=== PATIENT | female | born 1960 | race Caucasian/White ===

== ENCOUNTER 2020-06-29 20:55 | Inpatient (IN) | payer BC ==
[~2020-06-29] VITALS: Ht 162.6 cm; Wt 63.6 kg
[2020-06-29] MEDS ORDERED: etomidate 2mg/ml inj. IV ONE (21:35)
[2020-06-29] MEDS ORDERED: magnesium 2GM in 50ml NS 50 ML IV ONE (21:50)
[2020-06-29] MEDS ORDERED: diltiazem 30mg tablet PO ONE (21:50)
[2020-06-29] MEDS ORDERED: magnesium Cl slow-release 64mg tablet PO PRN (22:05)
[2020-06-29] MEDS ORDERED: HYDROcodone/acetaminophen 5mg/325mg tablet PO PRN (22:05)
[2020-06-29] MEDS ORDERED: magnesium 2GM in 50ml NS 50 ML IV PRN (22:05)
[2020-06-29] MEDS ORDERED: ondansetron/PF 4mg/2ml inj IV PRN (22:05)
[2020-06-29] MEDS ORDERED: magnesium 4gm in 100ml NS 100 ML IV PRN (22:05)
[2020-06-29] MEDS ORDERED: mag hydrox/Alum hydrox/simeth 30ml oral suspension PO PRN (22:05)
[2020-06-29] MEDS ORDERED: magnesium hydroxide 30ml (MOM) UD suspension PO PRN (22:05)
[2020-06-29] MEDS ORDERED: potassium Cl 20 mEq SR tablet PO PRN ×2 (22:05)
[2020-06-29] MEDS ORDERED: acetaminophen 325mg tablet PO PRN (22:05)
[2020-06-29] MEDS ORDERED: potassium CL 10mEq/100ml bag 100 ML IV PRN ×2 (22:05)
[2020-06-29 22:26] LABS: BASOPHILS # (AUTO) 0.1 X10'3 (0-0.2); BASOPHILS % (AUTO) 0.9 % (0-1); EOSINOPHILS # (AUTO) 0.1 X10'3 (0-0.9); EOSINOPHILS % (AUTO) 1.4 % (0-6); HEMATOCRIT 44.5 % (35.0-45.0); HEMOGLOBIN 14.5 g/dl (12.0-16.0); LYMPHOCYTES % (AUTO) 28.8 % (21-51); MEAN CORPUSCULAR HEMOGLOBIN 28.8 PG (27.0-31.0); MEAN CORPUSCULAR HGB CONC 32.6 g/dL (33.0-36.5); MEAN CORPUSCULAR VOLUME 88.3 FL (78-98); MEAN PLATELET VOLUME 7.6 FL (7.4-10.4); MONOCYTES # (AUTO) 0.4 X10'3 (0-0.9); MONOCYTES % (AUTO) 6.1 % (2-12); NEUTROPHILS # (AUTO) 4.4 X10'3 (1.8-7.7); NEUTROPHILS % (AUTO) 62.8 % (42-75); PLATELET COUNT 267 X10'3 (140-440); RED BLOOD COUNT 5.05 X10'6 (4.20-5.60); RED CELL DISTRIBUTION WIDTH 13.8 % (11.5-14.5)
[2020-06-29 22:39] LABS: ALANINE AMINOTRANSFERASE 31 U/L (12-78); ALBUMIN 3.4 G/DL (3.4-5.0); ALBUMIN/GLOBULIN RATIO 0.9 (1.1-1.5); ALKALINE PHOSPHATASE 113 IU/L (46-116); ANION GAP 9 (8-16); ASPARTATE AMINO TRANSFERASE 19 U/L (10-37); BILIRUBIN,TOTAL 0.6 MG/DL (0.1-1.0); BLOOD UREA NITROGEN 14 MG/DL (7-18); BUN/CREATININE RATIO 16.7 (6.6-38.0); CALCIUM 8.5 MG/DL (8.5-10.1); CHLORIDE 105 MMOL/L (99-107); CREATININE 0.84 MG/DL (0.40-0.90); GLUCOSE 97 MG/DL (70-104); POTASSIUM 3.8 MMOL/L (3.5-5.1); SODIUM 139 MMOL/L (135-145); TOTAL CARBON DIOXIDE 25.5 MMOL/L (24-32); TOTAL PROTEIN 7.2 G/DL (6.4-8.2); eGFR 69 ML/MIN
[2020-06-29 22:43] LABS: MAGNESIUM 2.1 MG/DL (1.5-2.4); TROPONIN I < 0.04 NG/ML (0.0-0.05)
[2020-06-29 23:00] VITALS: BP 137/69
[2020-06-30 03:00] VITALS: BP 122/84
[2020-06-30 06:00] VITALS: BP 142/74
--- NOTE | 2020-06-30 06:00 | NUR ---
Patient in room PCU 3015. I have received report from Fabiola BRANNON and had the opportunity to ask questions and assume patient care.
[2020-06-30 06:37] LABS: ALANINE AMINOTRANSFERASE 28 U/L (12-78); ALBUMIN 3.1 G/DL (3.4-5.0); ALBUMIN/GLOBULIN RATIO 0.8 (1.1-1.5); ALKALINE PHOSPHATASE 109 IU/L (46-116); ANION GAP 7 (8-16); ASPARTATE AMINO TRANSFERASE 20 U/L (10-37); BILIRUBIN,TOTAL 0.8 MG/DL (0.1-1.0); BLOOD UREA NITROGEN 12 MG/DL (7-18); BUN/CREATININE RATIO 14.8 (6.6-38.0); CALCIUM 8.3 MG/DL (8.5-10.1); CHLORIDE 107 MMOL/L (99-107); CREATININE 0.81 MG/DL (0.40-0.90); GLUCOSE 97 MG/DL (70-104); MAGNESIUM 2.2 MG/DL (1.5-2.4); POTASSIUM 3.8 MMOL/L (3.5-5.1); SODIUM 141 MMOL/L (135-145); TOTAL PROTEIN 6.8 G/DL (6.4-8.2); eGFR 72 ML/MIN
[2020-06-30 06:42] LABS: BASOPHILS % (AUTO) 0.6 % (0-1); EOSINOPHILS # (AUTO) 0.1 X10'3 (0-0.9); LYMPHOCYTES # (AUTO) 1.9 X10'3 (1.1-4.8); LYMPHOCYTES % (AUTO) 29.9 % (21-51); MEAN CORPUSCULAR HEMOGLOBIN 29.3 PG (27.0-31.0); MEAN CORPUSCULAR HGB CONC 33.2 g/dL (33.0-36.5); MEAN CORPUSCULAR VOLUME 88.3 FL (78-98); MONOCYTES # (AUTO) 0.4 X10'3 (0-0.9); MONOCYTES % (AUTO) 6.1 % (2-12); NEUTROPHILS # (AUTO) 3.9 X10'3 (1.8-7.7); NEUTROPHILS % (AUTO) 61.4 % (42-75); PLATELET COUNT 260 X10'3 (140-440); RED BLOOD COUNT 4.76 X10'6 (4.20-5.60); RED CELL DISTRIBUTION WIDTH 13.6 % (11.5-14.5); WHITE BLOOD COUNT 6.4 X10'3 (4.5-11.0)
[2020-06-30] MEDS ORDERED: K and/or MAG REPLACEMENT MC SCH (08:00)
[2020-06-30] MEDS ORDERED: docusate sod 100mg capsule PO SCH (08:00)
[2020-06-30] MEDS ORDERED: carvedilol 6.25mg tablet PO SCH (08:00)
[2020-06-30] MEDS ORDERED: PARO40TA4 PO (08:58)
[2020-06-30] MEDS ORDERED: ERGO500054 PO (08:58)
[2020-06-30 11:00] VITALS: BP 162/75
[2020-06-30] MEDS ORDERED: METO-395 PO (14:35)
[2020-06-30] MEDS ORDERED: ASPI81TA52 PO (14:35)
[2020-06-30 16:02] LABS: TROPONIN I < 0.04 NG/ML (0.0-0.05)
--- NOTE | 2020-06-30 16:55 | NUR ---
Pt DC'd home with . IV removed, canula intact. Tele-box removed and returned to tele-tech. Pt alert and oriented with vital signs WNL upon DC. Per Dr. Dooley, pt is stable for DC. DC paper work printed out and gone over with Pt. Allowed Pt to ask questions concerning DC and then answered them. New prescriptions called into [facility] in [place]. Pt stated that she will call her PCP tomorrow to make a follow up appt. Pt's belongings gathered and sent with Pt. Pt wheeled down to lobby in wheelchair by nurse. Pt left in private vehicle with for home.
[2020-06-30] MEDS ORDERED: enoxaparin 40mg/0.4ml syringe SQ SCH (20:00)
== END 2020-06-30 16:55 | disposition home or self-care (01) | DRG 310 ==
LOC: ER 20:57 → ED HOLD 22:03 → PCU 3S 23:37
PROVIDERS: ADMIT Family Medicine; ATTEND Internal Medicine
DX: I48.91 Unspecified atrial fibrillation (principal); Z88.2 Allergy status to sulfonamides; Z88.8 Allergy status to other drugs, medicaments and biological substances; F15.90 Other stimulant use, unspecified, uncomplicated
CPT/HCPCS: 36415; 71045; 80053; 83735; 84439; 84443; 84484; 85025; 87081; 93005; 93306; 93308; 99285; G0378; J3475